=== PATIENT | female | born 1975 | race Caucasian/White ===

== ENCOUNTER 2019-07-31 18:03 | Inpatient (IN) ==
--- OUTSIDE RECORDS SUMMARY | 2019-07-31 18:05 | External Medical Summary | Continuity of Care Document ---
:1975 Author Name Oscar MRadha Address Unavailable Unavailable , Care Team Providers Name Role Phone Unavailable Unavailable Unavailable Juani ALMENDAREZ Unavailable [email or web address] Problems Folic acid deficiency (266.2) (E53.8) Vitamin B12 deficiency (266.2) (E53.8) Essential hypertriglyceridemia (272.1) (E78.1) Dyslipidemia (272.4) (E78.5) Hyperglycemia (790.29) (R73.9) Irregular menstrual cycle (626.4) (N92.6) Obesity (278.00) (E66.9) Allergies and Adverse Reactions No Known Drug Allergies (Allergy) Medications metFORMIN HCl - 1000 MG Oral Tablet; TAKE 1 TABLET MEDARDO RY 12 HOURS. TANESHA Gloria Start: 12-Aug-2011 Quantity: 60 Refills: 11 Phentermine HCl - 37.5 MG Oral Tablet; TAKE 1 TABLET DAILY. TANESHA Gloria Start: 12-Aug-2011 Quantity: 30 Refills: 3 Ibuprofen 200 MG Oral Tablet , M.D. Refills: 0 Procedures Procedures not documented Immunizations Immunizations not documented Family History Unknown Family Member Family history of myocardial infarction Status: Active Comments: Family History (V17.3) (Z82.49) Family history of lung cancer (V16.1) (Z80.1) Status: Active Comments: Family History Family history of diabetes mellitus (V18.0) Status: Active Comments: Family History (Z83.3) Grandfather Family history of myocardial infarction (V17.3) (Z82.49) Sta tus: Active aunt Family history of lung cancer (V16.1) (Z80.1) Status: Active Mother Family history of diabetes mellitus (V18.0) (Z83.3) Status: Active Family history of Status: Active Father Family history of diabetes mellitus (V18.0) (Z83.3) Status: Active Social History - Smoking Status Current some day smoker Unknown if ever smoked Plan of Treatment Planned Observations Planned Goals not documented Results No Known Results Results not documented
--- OUTSIDE RECORDS SUMMARY | 2019-07-31 18:06 | External Medical Summary | Continuity of Care Document ---
:1975 Author Name Oscar MRadha Address Unavailable Unavailable , Care Team Providers Name Role Phone Unavailable Unavailable Unavailable Juani ALMENDAREZ Unavailable [email or web address] Problems Folic acid deficiency [...]
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
[2019-07-31 18:56] LABS: Basophils # (auto) 0.03 K/uL (0-0.2); Basophils % (auto) 0.4 %; Eosinophils % (auto) 5.2 %; Hematocrit (blood only) 43.8 % (37-47); Hemoglobin 14.8 g/dL (12.0-16.0); Immature Granulocytes # (auto) 0.01 K/uL (0.00-0.02); Immature Granulocytes % (auto) 0.1 %; Lymphocytes # (auto) 2.75 K/uL (1.2-3.4); Mean Corpuscular Hemoglobin 32.4 pg (25-34); Mean Corpuscular Hgb Conc 33.8 g/dL (32-36); Mean Corpuscular Volume 95.8 fL (80-100); Mean Platelet Volume 9.4 fL (7.4-10.4); Monocytes # (auto) 0.44 K/uL (0.11-0.59); Monocytes % (auto) 5.8 %; Neutrophils # (auto) 4.01 K/uL (1.4-6.5); Neutrophils % (auto) 52.5 %; Platelet Count 314 K/uL (130-400); RDW Coefficient of Variation 13.3 % (11.5-14.5); RDW Standard Deviation 46.9 fL (36.4-46.3); Red Blood Count 4.57 M/uL (4.2-5.4); White Blood Count 7.64 K/uL (4.8-10.8)
[2019-07-31 19:07] LABS: INR 0.9 (0.9-1.1); Partial Thromboplastin Ratio 0.9; Partial Thromboplastin Time 23.6 Seconds (21.0-31.0); Prothrombin Time 9.7 Seconds (9.0-12.0)
[2019-07-31 19:15] LABS: Acetaminophen < 2 ug/ml (10-30)
[2019-07-31 19:16] LABS: Alanine Aminotransferase 20 U/L (12-78); Albumin Level 3.2 gm/dl (3.4-5.0); Aspartate Aminotransferase 15 U/L (15-37); BUN Creatinine Ratio 7.2 (10-20); Blood Urea Nitrogen 7 mg/dl (7-18); Calcium 8.4 mg/dl (8.5-10.1); Carbon Dioxide 25 mmol/L (21-32); Chloride 112 mmol/L (98-107); Est GFR (African American) 90.8; Est GFR (Non-African American) 78.3; Glucose 97 mg/dl (70-99); Potassium 3.4 mmol/L (3.5-5.1); Sodium 143 mmol/L (136-145)
[2019-07-31 19:19] LABS: Pregnancy Test, Serum Negative (Negative)
[2019-07-31 19:26] LABS: Alkaline Phosphatase 88 U/L (45-117); Bilirubin,Total 0.2 mg/dl (0.2-1); Globulin 3.3 gm/dl (2.5-4.0); Total Protein 6.5 gm/dl (6.4-8.2)
[2019-07-31 22:31] LABS: Appearance Urine Clear (Clear); Bacteria Urine Automated Negative (Negative); Bilirubin Urine Negative (Negative); Blood Urine 3+ (Negative); Cast Urine Automated 0 /lpf (0-5); Color Urine Yellow; Glucose Urine UA Negative (Negative); Ketones Urine Negative (Negative); Leukocyte Esterase Urine Negative (Negative); Nitrite Urine Negative (Negative); Protein Urine Negative (Negative); Urobilinogen Urine Negative (Negative); WBC Urine Automated 0 /hpf (0-5); pH Urine 5.5 (4.5-7.5)
[2019-07-31 22:49] LABS: Amphetamines+Metham, Urine Neg (Neg); Barbiturates, Urine Neg (Neg); Benzodiazepine, Urine Neg (Neg); Cocaine, Urine Neg (Neg); MDMA (Ecstacy), Urine Neg (Neg); Methadone, Urine Neg (Neg); Opiate, Urine Pos (Neg); Phencyclidine, Urine Neg (Neg)
--- NOTE | 2019-08-01 01:07 | Emergency Department Note ---
ED Visit Note This case was signed out to me at change of shift awaiting mental health evaluation. The patient was evaluated for admission by staff from [facility] Tracy holloway, the patient was willing to sign herself in voluntarily but then decided against this. The ED psychiatric case making machine operator is petitioning a 302. The patient has made suicidal statements and is unwilling to cooperate. The delegate has read her her rights. I have signed off on the 302. The patient has been accepted to [facility] . : Depression Qualifiers: Depression Type: unspecified Qualified Code(s): F32.9 - Major depressive disorder, single episode, unspecified Overdose Qualifiers: Encounter type: initial encounter Injury intent: intentional self-harm Qualified Code(s): T50.902A - Poisoning by unspecified drugs, medicaments and biological substances, intentional self-harm, initial encounter
[2019-08-01] MEDS ORDERED: ALUMINUM/MAGNESIUM SUSP 30 ML UDC PO PRN (05:14)
[2019-08-01] MEDS ORDERED: SODIUM CHLORIDE 0.65% NA SOLN 45 ML (OCEAN) PRN (05:14)
[2019-08-01] MEDS ORDERED: MAGNESIUM HYDROXIDE SUSP 30 ML UDC PO PRN (05:14)
[2019-08-01] MEDS ORDERED: BISMUTH SUBSALICYLATE PER ML OMNICELL CHARGE PO PRN (05:14)
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
[2019-08-01] MEDS ORDERED: OLANZAPINE ZYDIS 10 MG ORALLY DIS. TAB PO PRN (12:00)
[2019-08-01] MEDS ORDERED: OLANZapine 10 MG/2.1 ML SDV IM PRN (12:00)
[2019-08-01] MEDS: NICOTINE 14 MG/24 HR PATCH TD SCH (14:44)
[2019-08-01] MEDS ORDERED: HALOPERIDOL LACTATE 5 MG/ML 1 ML VIAL IM PRN (16:18)
[2019-08-01] MEDS ORDERED: HALOPERIDOL LACTATE 5 MG/ML 1 ML VIAL IM STA (16:18)
[2019-08-01] MEDS ORDERED: BENZTROPINE MESYLATE 1 MG/ML 2 ML AMP IM PRN (16:19)
[2019-08-01] MEDS ORDERED: BENZTROPINE MESYLATE 1 MG TAB PO PRN (16:19)
[2019-08-01] MEDS ORDERED: HALOPERIDOL LACTATE 5 MG/ML 1 ML VIAL ONE (16:21)
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
[2019-08-01] MEDS: LORazepam 1 MG TAB PO PRN (18:05)
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
[2019-08-02] MEDS: NICOTINE 14 MG/24 HR PATCH TD SCH ×2 (11:17→15:41)
[2019-08-02] MEDS: LORazepam 1 MG TAB PO PRN ×2 (14:30→19:36)
[2019-08-02] MEDS ORDERED: NICOTINE POLACRILEX 2 MG GUM MT PRN (15:38)
[2019-08-02] MEDS: ACETAMINOPHEN 325 MG TAB PO PRN (19:36)
[2019-08-03] MEDS: LORazepam 1 MG TAB PO PRN (05:30)
[2019-08-03] MEDS: ACETAMINOPHEN 325 MG TAB PO PRN (05:30)
--- NOTE | 2019-08-03 17:22 | Discharge Summary ---
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 Tablet 50 mg PO HSZ PRN (Reason: Sleep) Qty: 20 RF: 2 nicotine 7 mg/24 hr Patch 24 Hour 14 mg transdermal QAM Qty: 14 RF: 0 Discontinued citalopram [Celexa] 40 mg Tablet 40 mg PO DAILY RF: 0 Discharge Orders: Discharge Order (Routine); Ordered 08/03/19 Ordered By: Archie Cedillo Admission Data Admit Date/Time: 08/01/19 02:46 Attending Provider: Sangeetha Mata Admit Provider: Sangeetha Mata Primary Care Provider: PCP,NO Other Interventions: Discharge Summary Assessment (RN) Last Done: 08/03/19 10:08 PSY Interdisciplinary Discharge Planning Last Done: 08/03/19 10:38 DC Date/Time DO NOT enter until pt leaves facility: 08/03/19 11:31 C[place] [address] D/C day mgmt > 30 min Patient Type Established History Expanded Problem Focused Exam Expanded Problem Focused Medical Decision Making Moderate Complexity Diagnoses Overdose T50.902A Encounter type: initial encounter Injury intent: intentional self-harm Suicidal ideations R45.851 Mood disorder F39 Substance abuse F19.10 Time Spent (min) 75
[2019-08-04 13:54] LABS: Codeine Urine NEGATIVE ng/mL (<50); Hydrocodone Urine NEGATIVE ng/mL (<50); Hydromor Urine NEGATIVE ng/mL (<50); Morphine Urine NEGATIVE ng/mL (<50); Norhydrocodone Conf Ur NEGATIVE ng/mL (<50); Noroxycodone Urine 1700 ng/mL (<50); Oxycodone Urine 1650 ng/mL (<50); Oxymorph Urine 1210 ng/mL (<50)
== END 2019-08-03 11:31 | disposition home or self-care (01) | DRG 918 ==
LOC: ED 18:03 → 3S 08-01 02:46